=== PATIENT | female | born 1995 | race Caucasian/White ===

== ENCOUNTER 2024-07-27 21:40 | Emergency (ER) | payer SELFPAY ==
[~2024-07-27] VITALS: Ht 154.9 cm; Wt 75.6 kg
[2024-07-27 21:53] VITALS: O2SAT 98
[2024-07-27] MEDS: METHOCARBAMOL 500MG TABLET PO ONE (23:18)
[2024-07-27] MEDS: IBUPROFEN 600MG TABLET PO ONE (23:19)
[2024-07-27] MEDS ORDERED: IBUP-2029 MT (23:23)
[2024-07-27] MEDS ORDERED: METH-653 MT (23:23)
[2024-07-27] MEDS ORDERED: LIDO700A30 TP (23:23)
[2024-07-27 23:45] VITALS: BP 114/73; PULSE 64; RESP 14; TEMP 36.3; O2SAT 95
== END 2024-07-27 23:54 | disposition home or self-care (01) ==
LOC: ER 21:40
DX: S83.8X1A Sprain of other specified parts of right knee, initial encounter (principal); V89.2XXA Person injured in unspecified motor-vehicle accident, traffic, initial encounter; Y93.89 Activity, other specified; Y92.410 Unspecified street and highway as the place of occurrence of the external cause; Y99.8 Other external cause status
CPT/HCPCS: 71045; 73110; 73562; 73610; 73630; 99284